=== PATIENT | male | born 1965 | race Caucasian/White ===

== ENCOUNTER → 2019-07-20 | Outpatient (CLI) | payer OTHER ==
--- NOTE | 2019-07-20 14:54 | Diagnostic Imaging Report ---
INDICATION: Low back pain radiating to the right leg. TIME OF EXAM: 02:09 p.m. FINDINGS: Three views of the lumbar spine demonstrate normal curvature and alignment. Vertebral body heights and disc spaces are well maintained. No fracture or subluxation is seen. IMPRESSION: No acute bony abnormality is detected. Dictated by: Dictated on workstation # [id number]
== END ==
LOC: RAD FS 14:05
PROVIDERS: ATTEND Nurse Practitioner
DX: M54.5 Low back pain (principal)
CPT/HCPCS: 72100